=== PATIENT | male | born 1950 | race Caucasian/White ===

== ENCOUNTER 2017-03-22 21:26 | Emergency (ER) | payer MEDICARE ==
[~2017-03-22 21:26] MED LIST: *UNABLE3; ACET500CAP PO; ASAB PO; BETAPACE80 PO; C1 PO; C25 PO; C5 PO; COREG25 PO; COUMADIN6 MG PO; DIGITEK0.125 MG PO; DIL2TAB PO; FLONASE NAS; JANTOVEN1 MG PO; JANTOVEN5 MG PO; KLOR-CON 1010 MEQ PO; KLOR-CON M1010 MEQ PO; L20 PO; LAN125 PO; LIOR10 PO; MEDROLPAK4 PO; MIRALAXPKT PO; MSCONTIN PO; MYTAB GAS125 MG PO; NEUR100 PO; NORCO1 TA1 PO; NORCO1 TAB PO; PLAVIX PO; PRAVACHOL40 MG PO; PRILO PO; PRIN20 PO; PROTONIX PO; REFRESH OPH; SLOW FE160 MG PO; SPIRIVA INH; V5 PO; X5 PO; ZESTRIL20 MG PO; ZOFRAN4 PO
[2017-03-22 23:27] LABS: BASOPHILS 0.4 %; BASOPHILS ABSOLUTE 0.02 10/3/uL (0.0-0.16); EOSINOPHILS 2.3 %; EOSINOPHILS ABSOLUTE 0.12 10/3/uL (0.0-0.53); HEMATOCRIT 31.6 % (40.0-51.0); HEMOGLOBIN 9.5 g/dL (13.6-17.8); IMMATURE GRANULOCYTES 0.2 %; IMMATURE GRANULOCYTES ABSOLUTE 0.01 10/3/uL (0.0-0.11); LYMPHOCYTES 20.5 %; LYMPHOCYTES ABSOLUTE 1.06 10/3/uL (0.67-4.30); MEAN CORPUS HGB CONC 30.1 g/dL (32.0-36.0); MEAN CORPUSCULAR HEMOGLOB 26.5 pg (26.0-34.0); MEAN CORPUSCULAR VOLUME 88.3 fL (80-100); MEAN PLATELET VOLUME 10.4 fL (9.2-13.0); MONOCYTES 9.5 %; MONOCYTES ABSOLUTE 0.49 10/3/uL (0.21-1.20); NEUTROPHILS 67.1 %; NEUTROPHILS ABSOLUTE 3.48 10/3/uL (2.02-8.40); PLATELET COUNT 114 10/3/uL (150-400); RBC DISTRIBUTION WIDTH 18.3 % (12.0-16.0); RED CELL COUNT 3.58 10/6/uL (4.7-6.1); WHITE BLOOD CELLS 5.2 10/3/uL (4.5-10.5)
[2017-03-22 23:28] LABS: MANUAL DIFF NO %
[2017-03-22 23:31] LABS: INTERNATIONAL NORMAL RATI 1.5 UNITS (-); PARTIAL THROMBO TIME 27.8 SEC (22.5-37.2)
[2017-03-22 23:32] LABS: PROTIME (NOT ORD) 18.1 SEC (12.0-14.5)
[2017-03-22 23:42] LABS: BUN (BLOOD UREA NITROGEN) 24 MG/DL (6-23); CALCIUM, SERUM 8.8 MG/DL (8.5-10.4); CHEST PAIN PROFILE TAT 0 Hrs 21 Mins; CHLORIDE, SERUM 104 MMOL/L (96-112); CO2 (CARBON DIOXIDE) 27 MMOL/L (24-34); GFR AFRICAN AMERICAN 72 ML/MIN (>=60); GFR NON AFRICAN AMERICAN 62 ML/MIN (>=60); GLUCOSE, SERUM 167 MG/DL (60-99); POTASSIUM, SERUM 4.6 MMOL/L (3.5-5.3); SODIUM, SERUM 136 MMOL/L (135-148); TROPONIN I 0.03 NG/ML (<0.05)
[2017-03-25] MEDS ORDERED: P5 PO (02:24)
== END 2017-03-23 02:07 | disposition home or self-care (01) ==
LOC: ER 21:26
PROVIDERS: Specialist
DX: J44.1 Chronic obstructive pulmonary disease with (acute) exacerbation (principal); I11.0 Hypertensive heart disease with heart failure; I50.9 Heart failure, unspecified; Z95.1 Presence of aortocoronary bypass graft; Z79.01 Long term (current) use of anticoagulants; Z79.82 Long term (current) use of aspirin; Z79.899 Other long term (current) drug therapy
CPT/HCPCS: 71020; 80048; 83735; 83880; 84484; 85025; 85610; 85730; 93005; 94640; 99285

== ENCOUNTER 2017-03-24 20:13 | Observation (INO) | payer MEDICARE ==
[~2017-03-24] VITALS: Ht 177.8 cm; Wt 69.6 kg
--- NOTE | ~2017-03-24 | DS ---
Discharge Summary [facility] [address] [facility] [place]. [address] NAME: REJI CERNA : 46 STATUS : DIS Moraima PAT#: [id number] AGE: 66 ADM/REG DATE : 03/24/17 MR#: [id number] REPORT SERV DATE: 03/28/17 DICTATED BY: RIVAS CHU DATE: 03/27/17 REPORT STATUS : Draft TRANSCRIBED BY: CESAR DATE: 03/27/17 ADMISSION DATE: 03/24/2017 DISCHARGE DATE: 03/27/2017 DISCHARGE DIAGNOSES: 1. Acute chronic obstructive pulmonary disease exacerbation. 2. Confusion. 3. Chronic atrial fibrillation. 4. Hypertension. 5. Chronic systolic heart failure. 6. Ischemic cardiomyopathy, EF 35%. 7. Hyperlipidemia. 8. Mitral regurgitation, status post mitral valve repair. 9. Prosthetic aortic valve. 10.Anxiety disorder. 11.Right carotid artery stenosis. 12.Mild cognitive impairment. 13.History of coronary artery disease, status post coronary artery bypass graft and status post percutaneous intervention. 14.Chronic back pain. IMAGING: Echocardiogram summary, moderately decreased left ventricular systolic function with a calculated ejection fraction of 35%. Regional wall motion abnormalities as above. Dilated left atrium. Normal left ventricular size with mildly decreased systolic function, history of mitral valve repair with moderate mitral regurgitation. History of aortic valve replacement with normal prosthetic valve gradients. Mild tricuspid regurgitation. When compared to the previous study performed on 01/20/2016, severe pulmonary hypertension could not be appreciated on this study. CTA of brain with and without contrast impression, no significant arterial stenosis, occlusion, or aneurysmal change of the main arteries about the [place]. 1. Mild diffuse cerebral involutional changes and deep white matter microvascular ischemic changes. 2. No acute CVA or other acute intracranial pathology identified. Carotid Doppler ultrasound impression, moderate plaque involving each carotid bifurcation, 50% to 69% stenosis involving the right internal carotid artery. No central stenosis involving the left carotid artery. The vertebral artery exhibits antegrade and retrograde flow. HISTORY OF PRESENT ILLNESS: For detailed HPI, please make reference to Annemarie Baumann' dictation on 03/24/2017. In brief, this is a 66-year-old male with medical history significant for COPD, ischemic cardiomyopathy, EF 45%, mitral valve repair, prosthetic aortic valve, who presented to the emergency room with complaints of right-sided pleuritic chest pain with associated cough productive of brownish sputum. No bilateral lower extremity swelling. Discharge Summary [address] [place]. [address] NAME: REJI CERNA : 46 STATUS : DIS Moraima PAT#: [id number] AGE: 66 ADM/REG DATE : 03/24/17 MR#: [id number] REPORT SERV DATE: 03/28/17 DICTATED BY: RIVAS CHU DATE: 03/27/17 REPORT STATUS : Draft TRANSCRIBED BY: CESAR DATE: 03/27/17 PHYSICAL EXAMINATION: VITAL SIGNS: On presentation, blood pressure 147/71, pulse 69, respirations 16, temperature 97.8, and oxygen saturation 97% on room air. LUNGS: Noted for scattered expiratory wheezes and rhonchi. LABORATORY DATA: Sodium was 130, potassium 4.9, and creatinine was 1.5. WBC 4.4, hemoglobin 9.3. Chest x-ray showed no acute cardiopulmonary process. EKG showed atrial paced rhythm. An assessment of acute COPD exacerbation with bronchitis and mild acute kidney injury were made in the ER. The patient was admitted to the Hospitalist Service. HOSPITAL COURSE: 1. Acute COPD exacerbation. The patient was started on prednisone and p.o. antibiotics. Sputum cultures were obtained. Sputum cultures grew normal ramiro. The patient's wheezing and shortness of breath significantly improved with DuoNebs. The patient was advised to continue prednisone to complete a total of five days treatment and follow up with primary care physician within one week of discharge. The patient was also advised to continue to abstain from smoking. Nicotine patch was also provided at the time of discharge. The patient did not require O2 at the time of discharge. 2. Right carotid artery stenosis. The patient complained of postural tinnitus. Carotid ultrasound of the neck showed 50% to 69% stenosis involving the right internal carotid artery. No evidence of dissection. This remained unchanged compared to previous study performed in 2014. The patient was advised to continue follow up with primary care physician. 3. Anxiety disorder. The patient's was upset. The patient requested for Xanax on presentation to the hospital. The patient's family requested that the patient to be taking off Xanax because the family is concerned about possible Xanax addiction. During this admission, Xanax was discontinued permanently. The patient was observed. No evidence of benzo withdrawal noted. The patient's mood gradually improved. The patient's anxiety also improved. The patient was advised to continue follow up with primary care physician. No Xanax was prescribed to this patient at the time of discharge. 4. Chronic systolic heart failure, EF of 35%. No evidence of acute decompensated heart failure. Repeat echocardiogram showed the patient's EF has remained unchanged from his previous study. The patient was advised to continue follow up with primary independent distributor as an outpatient. 5. Chronic atrial fibrillation. The patient's Coumadin was continued throughout the course of this admission. At time of discharge, the patient's INR remained within therapeutic range. The patient was advised to follow up with primary care physician. 6. Tobacco abuse. The patient reported that he has to stop tobacco use 4 days prior to presentation. The patient was provided with nicotine patch during this admission. The patient was advised to continue nicotine patch for the next four weeks. Follow up with primary care physician. 7. Mild cognitive impairment. The patient was noted to have intermittent episodes of confusion during this admission. CTA of the brain with and without contrast shows no Discharge Summary [address] [address] NAME: REJI CERNA : 46 STATUS : DIS Moraima PAT#: [id number] AGE: 66 ADM/REG DATE : 03/24/17 MR#: [id number] REPORT SERV DATE: 03/28/17 DICTATED BY: RIVAS CHU DATE: 03/27/17 REPORT STATUS : Draft TRANSCRIBED BY: CESRA DATE: 03/27/17 evidence of acute infarction or hemorrhage. The patient's confusion completely resolved prior to discharge. The patient returned back to baseline. The patient was advised to continue follow up with primary care physician. DISCHARGE MEDICATION: 1. Prednisone 40 mg p.o. daily x3 days. 2. Azithromycin 250 mg one p.o. daily x3 days. 3. Cephalexin 250 mg b.i.d. x3 days. 4. Coreg 25 mg p.o. b.i.d. 5. Aspirin 81 mg p.o. daily. 6. Digoxin 0.125 mg p.o. daily. 7. Lasix 20 mg p.o. daily. 8. Lisinopril 20 mg p.o. daily. 9. Protonix 40 mg p.o. daily. 10.Klor-Con 10 mEq p.o. b.i.d. 11.Pravastatin 40 mg p.o. daily. 12.Sotalol 80 mg p.o. b.i.d. 13.Warfarin 5 mg p.o. daily. 14.Spiriva one inhaler daily. 15.Albuterol one puff b.i.d.. DISCHARGE DISPOSITION: Home with self-care. Greater than 35 minutes was used to prepare this patient's discharge, reconcile medication, advise the patient on discharge plans and followup. IOO/MODL Rivas Chu MD / [id number] CC: Rivas Chu MD
--- NOTE | ~2017-03-24 | HP ---
History And Physical [facility] [id number] [place]. [address] NAME: REJI CERNA : 46 STATUS : ADM Moraima PAT#: [id number] AGE: 66 ADM/REG DATE : 03/24/17 MR#: [id number] REPORT SERV DATE: 03/25/17 DICTATED BY: ANNEMARIE MSIHRA DATE: 03/24/17 REPORT STATUS : Draft TRANSCRIBED BY: MODL DATE: 03/24/17 DATE OF ADMISSION: 03/24/2017 CHIEF COMPLAINT: Cough and chest pain. HISTORY OF PRESENT ILLNESS: A 66-year-old white male with history of COPD and ischemic cardiomyopathy, came to the emergency room last night complaining of right-sided chest pain. Chest pain is worse upon taking a deep breath and radiating to his right shoulder. The patient has also had a cough for the past three weeks, productive of brownish sputum. He continues to smoke an unknown amount per day, he varies the amount as he talks to me. He says he is trying to quit, however. Anyway, he was sent home from the emergency room. He went to [facility] today with similar symptoms and asked to be admitted to the hospital for his chest pain. The patient has always had some shortness of breath with exertion. He is on anticoagulation with warfarin for an aortic valve replacement in the past. He states that he has had coronary artery stents about five years ago, but none since. He also states that he had an AICD and a pacemaker placed about seven years ago. PAST MEDICAL HISTORY: COPD, CAD stents about five years ago, an aortic valve replacement with mechanical valve three years ago, and an AICD and pacer placed seven years ago. He has hypertension. He has COPD. The patient had a paroxysmal atrial fibrillation. PAST SURGICAL HISTORY: Aortic valve replacement and back surgery. ALLERGIES: HE HAS NO KNOWN DRUG ALLERGIES. SOCIAL HISTORY: He continues to smoke an unknown amount daily. Does not drink alcohol. He is retired. He is . His is his power of attorney law clerk. FAMILY HISTORY: Mother of abdominal aortic aneurysm. Dad of heart failure and COPD. HOME MEDICATIONS: Lisinopril 20 mg daily, potassium 10 mEq b.i.d., Protonix 40 mg daily, Viagra as needed, Lasix 20 mg daily, Pravachol 40 mg at bedtime, Coreg 25 mg b.i.d., sotalol 80 mg b.i.d., digoxin 0.25 mg daily, warfarin 5 mg daily, Xanax 0.5 mg b.i.d. (the patient states he ran out of this in January), prednisone, azithromycin, Spiriva HandiHaler, and Ventolin. REVIEW OF SYSTEMS: CONSTITUTIONAL: He denies fever, sweats, or rigors. EYES: No blurred or double vision, vision loss or glaucoma or cataracts. HEENT: No headache, hearing loss, or tinnitus. CARDIOVASCULAR: Chest pain as above. No palpitations, syncope, or edema. He has had some dyspnea on exertion. RESPIRATORY: Cough. He has had some wheezing. No hemoptysis. He has had shortness of breath and dyspnea on exertion. GASTROINTESTINAL: No nausea, vomiting, hematemesis, or abdominal pain. History And Physical [address] [address] NAME: REJI CERNA : 46 STATUS : ADM Moraima PAT#: [id number] AGE: 66 ADM/REG DATE : 03/24/17 MR#: [id number] REPORT SERV DATE: 03/25/17 DICTATED BY: ANNEMARIE MISHRA DATE: 03/24/17 REPORT STATUS : Draft TRANSCRIBED BY: CESAR DATE: 03/24/17 MUSCULOSKELETAL: Does have arthralgia or arthritis. INTEGUMENT: No rash or suspicious skin lesions. NEUROLOGIC: No memory loss, gait disturbance, weakness. HEMATOLOGIC: No anemia, iron deficiency, or B12 deficiency. PSYCHIATRIC: No depression or bipolar. He does have anxiety disorder. : No dysuria, hematuria, or nephrolithiasis. ENDOCRINE: No known diabetes or thyroid disease. He does have an increased cholesterol. PHYSICAL EXAMINATION: VITAL SIGNS: Blood pressure is 147/71, pulse 69, respirations 16, temperature 97.8, O2 saturation is 97% on room air. CONSTITUTIONAL: Alert and appropriate. PSYCHIATRIC: Oriented x3. Memory intact. Affect appropriate. HEENT: Atraumatic, normocephalic. Oral palate without lesion. EYES: Pupils are reactive and anicteric. NECK: No adenopathy. Supple. No thyromegaly or masses. RESPIRATORY: He has scattered expiratory wheezes and rhonchi. No chest wall tenderness. AICD, left chest. CARDIOVASCULAR: Regular rate and rhythm. 2/6 murmur with valve click. ABDOMEN: Soft, nontender. No masses. SKIN: No rash. No suspicious lesions. NEUROLOGIC: The patient moves all four extremities. Cranial nerves 2 through 12 intact. LYMPHATIC: No adenopathy in neck, axilla, or femoral region. MUSCULOSKELETAL: Range of motion intact. DATA: Sodium 130, potassium 4.9, chloride 97, CO2 of 28, BUN 33, and creatinine 1.5. White blood cell count 4.4, hemoglobin 9.3, platelet 118. Chest x-ray, no acute process. EKG, note that this is from another facility, atrial paced rhythm. IMPRESSION/PLAN: 1. Bronchitis, chronic obstructive pulmonary disease exacerbation. Place the patient on p.o. prednisone and on p.o. Ceftin. 2. Mild acute renal failure likely secondary to dehydration. We will hold Lasix x1 day and lower dose of lisinopril. 3. Ischemic cardiomyopathy. 4. Atypical chest pain. We will trend cardiac enzymes. 5. Tobacco abuse. Encouraged cessation. 6. Anxiety disorder. Restart Xanax as p.r.n. dose. NGM/MODL Annemarie Mishra MD / [id number] History And Physical [address] [address] NAME: REJI CERNA : 46 STATUS : ADM Moraima PAT#: [id number] AGE: 66 ADM/REG DATE : 03/24/17 MR#: [id number] REPORT SERV DATE: 03/25/17 DICTATED BY: ANNEMARIE MISHRA DATE: 03/24/17 REPORT STATUS : Draft TRANSCRIBED BY: MODL DATE: 03/24/17 CC: Rivas Staples MD
[2017-03-24 23:54] LABS: INTERNATIONAL NORMAL RATI 2.4 UNITS (-)
[2017-03-24 23:59] LABS: TROPONIN I 0.02 NG/ML (<0.05)
[2017-03-25] LABS: CK-MB 2.6 NG/ML; CPK 97 U/L (0-200)
[2017-03-25 00:07] LABS: PROTIME (NOT ORD) 26.3 SEC (12.0-14.5)
[2017-03-25] MEDS ORDERED: JANTOVEN5 MG (02:21)
[2017-03-25] MEDS ORDERED: Z-PAK PO (02:22)
[2017-03-25] MEDS ORDERED: PRIN20 PO (02:23)
[2017-03-25] MEDS ORDERED: VENTOLIN HFA INH (02:24)
[2017-03-25] MEDS ORDERED: P20 PO (02:24)
[2017-03-25 05:17] LABS: BASOPHILS 0 %; EOSINOPHILS 0.1 %; EOSINOPHILS ABSOLUTE 0.01 10/3/uL (0.0-0.53); HEMATOCRIT 31.9 % (40.0-51.0); HEMOGLOBIN 10.1 g/dL (13.6-17.8); IMMATURE GRANULOCYTES 0.3 %; IMMATURE GRANULOCYTES ABSOLUTE 0.02 10/3/uL (0.0-0.11); LYMPHOCYTES 15.1 %; LYMPHOCYTES ABSOLUTE 1.12 10/3/uL (0.67-4.30); MEAN CORPUSCULAR HEMOGLOB 27.4 pg (26.0-34.0); MEAN CORPUSCULAR VOLUME 86.4 fL (80-100); MONOCYTES ABSOLUTE 0.67 10/3/uL (0.21-1.20); NEUTROPHILS 75.5 %; NEUTROPHILS ABSOLUTE 5.59 10/3/uL (2.02-8.40); PLATELET COUNT 114 10/3/uL (150-400); RBC DISTRIBUTION WIDTH 18.2 % (12.0-16.0); RED CELL COUNT 3.69 10/6/uL (4.7-6.1)
[2017-03-25 05:18] LABS: MANUAL DIFF NO %; MEAN CORPUS HGB CONC 31.7 g/dL (32.0-36.0); WHITE BLOOD CELLS 7.4 10/3/uL (4.5-10.5)
[2017-03-25 05:25] LABS: A/G RATIO 0.9 (0.7-1.9); ALBUMIN 3.4 G/DL (3.5-5.0); ALKALINE PHOSPHATASE 113 U/L (45-117); BUN (BLOOD UREA NITROGEN) 31 MG/DL (6-23); CHLORIDE, SERUM 98 MMOL/L (96-112); CHOL/HDL RATIO(NOT ORDER) 4.1 (0-5); CHOLESTEROL 90 MG/DL (< 200); CO2 (CARBON DIOXIDE) 27 MMOL/L (24-34); CREATININE 1.16 MG/DL (0.70-1.30); GFR AFRICAN AMERICAN 75 ML/MIN (>=60); GFR NON AFRICAN AMERICAN 64 ML/MIN (>=60); GLOBULIN 3.9 G/DL (2.5-4.1); GLUCOSE, SERUM 121 MG/DL (60-99); HDL CHOLESTEROL 22 MG/DL (> 39); LDL CHOLESTEROL 42 MG/DL (< 130); NON-HDL CHOLESTEROL 68 MG/DL (< 160); POTASSIUM, SERUM 4.6 MMOL/L (3.5-5.3); SGOT(AST) 23 U/L (5-40); SGPT(ALT) 19 U/L (5-65); SODIUM, SERUM 133 MMOL/L (135-148); TOTAL BILIRUBIN 0.9 MG/DL (0-1.2); TOTAL PROTEIN 7.3 G/DL (6.0-8.5); TRIGLYCERIDE 130 MG/DL (< 150)
[2017-03-25 05:37] LABS: INTERNATIONAL NORMAL RATI 2.6 UNITS (-); PARTIAL THROMBO TIME 31.3 SEC (22.5-37.2); PROTIME (NOT ORD) 27.3 SEC (12.0-14.5)
[2017-03-25 10:51] LABS: CK-MB 2.5 NG/ML; CPK 81 U/L (0-200); TROPONIN I 0.02 NG/ML (<0.05)
[2017-03-25 12:23] LABS: CPK 65 U/L (0-200); TROPONIN I 0.02 NG/ML (<0.05)
[2017-03-25 12:24] LABS: CK-MB 2.5 NG/ML
[2017-03-26 03:27] LABS: BASOPHILS 0 %; EOSINOPHILS 0 %; HEMATOCRIT 29.6 % (40.0-51.0); HEMOGLOBIN 9.3 g/dL (13.6-17.8); IMMATURE GRANULOCYTES 0.2 %; IMMATURE GRANULOCYTES ABSOLUTE 0.01 10/3/uL (0.0-0.11); LYMPHOCYTES 10.5 %; LYMPHOCYTES ABSOLUTE 0.69 10/3/uL (0.67-4.30); MEAN CORPUS HGB CONC 31.4 g/dL (32.0-36.0); MEAN CORPUSCULAR HEMOGLOB 26.9 pg (26.0-34.0); MEAN CORPUSCULAR VOLUME 85.5 fL (80-100); MEAN PLATELET VOLUME 10.4 fL (9.2-13.0); MONOCYTES 8.8 %; MONOCYTES ABSOLUTE 0.58 10/3/uL (0.21-1.20); NEUTROPHILS 80.5 %; NEUTROPHILS ABSOLUTE 5.32 10/3/uL (2.02-8.40); PLATELET COUNT 105 10/3/uL (150-400); RED CELL COUNT 3.46 10/6/uL (4.7-6.1); WHITE BLOOD CELLS 6.6 10/3/uL (4.5-10.5)
[2017-03-26 03:36] LABS: MANUAL DIFF NO %
[2017-03-26 03:42] LABS: BUN (BLOOD UREA NITROGEN) 32 MG/DL (6-23); CALCIUM, SERUM 8.4 MG/DL (8.5-10.4); CHLORIDE, SERUM 99 MMOL/L (96-112); CO2 (CARBON DIOXIDE) 28 MMOL/L (24-34); CREATININE 1.27 MG/DL (0.70-1.30); GFR AFRICAN AMERICAN 67 ML/MIN (>=60); GFR NON AFRICAN AMERICAN 58 ML/MIN (>=60); INTERNATIONAL NORMAL RATI 2.6 UNITS (-); PHOSPHORUS, SERUM 3.1 MG/DL (2.5-4.5); POTASSIUM, SERUM 4.5 MMOL/L (3.5-5.3); PROTIME (NOT ORD) 27.9 SEC (12.0-14.5); SODIUM, SERUM 133 MMOL/L (135-148)
[2017-03-26 03:43] LABS: GLUCOSE, SERUM 147 MG/DL (60-99)
[2017-03-27 06:30] LABS: BASOPHILS 0 %; EOSINOPHILS 0 %; HEMATOCRIT 29.9 % (40.0-51.0); HEMOGLOBIN 9.5 g/dL (13.6-17.8); IMMATURE GRANULOCYTES 0.2 %; IMMATURE GRANULOCYTES ABSOLUTE 0.01 10/3/uL (0.0-0.11); LYMPHOCYTES 12.9 %; LYMPHOCYTES ABSOLUTE 0.73 10/3/uL (0.67-4.30); MEAN CORPUS HGB CONC 31.8 g/dL (32.0-36.0); MEAN CORPUSCULAR HEMOGLOB 27.1 pg (26.0-34.0); MEAN CORPUSCULAR VOLUME 85.4 fL (80-100); MEAN PLATELET VOLUME 10.4 fL (9.2-13.0); MONOCYTES 6.3 %; MONOCYTES ABSOLUTE 0.36 10/3/uL (0.21-1.20); NEUTROPHILS 80.6 %; NEUTROPHILS ABSOLUTE 4.58 10/3/uL (2.02-8.40); PLATELET COUNT 112 10/3/uL (150-400); RBC DISTRIBUTION WIDTH 17.7 % (12.0-16.0); WHITE BLOOD CELLS 5.7 10/3/uL (4.5-10.5)
[2017-03-27 06:33] LABS: INTERNATIONAL NORMAL RATI 2.6 UNITS (-); PROTIME (NOT ORD) 27.8 SEC (12.0-14.5)
[2017-03-27 06:36] LABS: MANUAL DIFF NO %
[2017-03-27 06:39] LABS: BUN (BLOOD UREA NITROGEN) 31 MG/DL (6-23); CHLORIDE, SERUM 97 MMOL/L (96-112); CO2 (CARBON DIOXIDE) 27 MMOL/L (24-34); CREATININE 1.09 MG/DL (0.70-1.30); GFR AFRICAN AMERICAN 80 ML/MIN (>=60); GFR NON AFRICAN AMERICAN 69 ML/MIN (>=60); GLUCOSE, SERUM 142 MG/DL (60-99); PHOSPHORUS, SERUM 3.3 MG/DL (2.5-4.5); POTASSIUM, SERUM 4.4 MMOL/L (3.5-5.3); SODIUM, SERUM 133 MMOL/L (135-148)
[2017-03-27] MEDS ORDERED: CEFT2 PO (11:43)
[2017-03-27] MEDS ORDERED: HABIT21 TOP (11:44)
== END 2017-03-27 12:14 | disposition home or self-care (01) ==
LOC: ENRESERVDT → ENRESERVTM → ENRESERV → CDU1 21:54 → CDU2 21:54
PROVIDERS: Hospitalist; Internal Medicine
DX: J44.1 Chronic obstructive pulmonary disease with (acute) exacerbation (principal); R41.0 Disorientation, unspecified; I48.2 Chronic atrial fibrillation; R07.89 Other chest pain; I11.0 Hypertensive heart disease with heart failure; N17.9 Acute kidney failure, unspecified; I50.22 Chronic systolic (congestive) heart failure; I25.5 Ischemic cardiomyopathy; E78.5 Hyperlipidemia, unspecified; I34.0 Nonrheumatic mitral (valve) insufficiency; F41.9 Anxiety disorder, unspecified; I65.21 Occlusion and stenosis of right carotid artery; I25.10 Atherosclerotic heart disease of native coronary artery without angina pectoris; G89.29 Other chronic pain; Z95.5 Presence of coronary angioplasty implant and graft; Z79.82 Long term (current) use of aspirin; Z79.01 Long term (current) use of anticoagulants; Z79.899 Other long term (current) drug therapy; Z95.2 Presence of prosthetic heart valve; Z87.891 Personal history of nicotine dependence; Z98.890 Other specified postprocedural states
CPT/HCPCS: 70496; 80048; 80053; 80061; 82550; 82553; 82962; 83735; 84100; 84484; 85025; 85610; 85730; 87205; 93005; 93306; 93880; 94640; A9270-GY; G0378; Q9967